=== PATIENT | female | born 1990 | race Caucasian/White ===

== ENCOUNTER 2018-05-31 20:08 | Inpatient (IN) | payer MEDICAID, SELFPAY ==
[~2018-05-31] VITALS: Ht 162.6 cm; Wt 82.2 kg
[2018-05-31 20:41] LABS: HEMATOCRIT 42.4 % (36.0-47.0); HEMOGLOBIN 14.5 g/dl (12.0-15.5); MEAN CORPUSCULAR HGB CONC 34.2 g/dl (32.0-36.5); MEAN CORPUSCULAR VOLUME 90.8 fl (80.0-96.0); PLATELET COUNT, AUTOMATED 252 10^3/uL (150-450); RED BLOOD COUNT 4.67 10^6/uL (4.00-5.40); WHITE BLOOD COUNT 8.4 10^3/uL (4.0-10.0)
[2018-05-31 21:11] LABS: ACETAMINOPHEN LEVEL < 2.0 UG/ML (10.0-30.0); ALBUMIN 3.9 GM/DL (3.2-5.2); ALT/SGPT 22 U/L (12-78); BILIRUBIN,DIRECT 0.2 MG/DL (0.0-0.2); BILIRUBIN,TOTAL 0.6 MG/DL (0.2-1.0); BLOOD UREA NITROGEN 16 MG/DL (7-18); CALCIUM LEVEL 8.8 MG/DL (8.5-10.1); CARBON DIOXIDE LEVEL 27 MEQ/L (21-32); CHLORIDE LEVEL 108 MEQ/L (98-107); CREATININE FOR GFR 1.04 MG/DL (0.55-1.30); ETHYL ALCOHOL (ETHANOL) < 0.003 % (0.000-0.010); GLOMERULAR FILTRATION RATE > 60.0 (>60); GLUCOSE, FASTING 82 MG/DL (70-100); SALICYLATE LEVEL 2.2 MG/DL (5.0-30.0); SODIUM LEVEL 141 MEQ/L (136-145); TOTAL PROTEIN 7.3 GM/DL (6.4-8.2)
[2018-05-31 21:17] LABS: AMPHETAMINES LEVEL URINE NEGATIVE (NEGATIVE); BARBITURATES URINE NEGATIVE (NEGATIVE); BENZODIAZEPINES URINE NEGATIVE (NEGATIVE); CANNABINOIDS URINE POSITIVE (NEGATIVE); COCAINE METABOLITE URINE NEGATIVE (NEGATIVE); METHADONE URINE NEGATIVE (NEGATIVE); OPIATES URINE NEGATIVE (NEGATIVE); PHENCYCLIDINE URINE NEGATIVE (NEGATIVE)
[2018-05-31] MEDS ORDERED: ACETAMINOPHEN TAB 650MG DOSE (2X325MG) PO PRN (21:45)
[2018-05-31] MEDS ORDERED: MOM 30ML SUSPENSION UDC PO PRN (21:45)
[2018-05-31] MEDS: traZODone 50 MG TAB PO PRN (23:34)
[2018-05-31 23:44] VITALS: BP 117/76
[2018-06-01 06:44] VITALS: BP 131/70
[2018-06-01] MEDS: NICOTINE 21MG/24HR 1 EA TRANSDERMAL TD SCH (10:01)
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
[2018-06-01 11:25] LABS: HCG, SERUM QUALITATIVE NEGATIVE (NEGATIVE)
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
[2018-06-01] MEDS ORDERED: FLUoxetine 10 MG CAP PO ONE (14:00)
[2018-06-01] MEDS ORDERED: PILL CRUSHER/CUTTER 1 EACH XX PRN (14:00)
[2018-06-01] MEDS: busPIRone 5 MG TAB PO SCH ×2 (15:06→20:22)
[2018-06-01 18:40] VITALS: BP 123/70
[2018-06-01] MEDS: hydrOXYzine 25 MG TAB PO PRN (20:21)
[2018-06-01] MEDS: IBUPROFEN 400 MG TAB PO PRN (20:21)
[2018-06-01] MEDS: traZODone 50 MG TAB PO PRN (20:22)
--- NOTE | 2018-06-01 22:07 | ECGEPIP ---
Stationary ECG Study [facility] Test Date: 2018-06-01 Pat Name: KAMALA FARIAS Department: Room: [place] [address] Gender: F Social Science Research Assistant: CARYN : 1990 Requested By: Joan Dixon Order Number: [id number] Reading MD: Fletcher Wyman Measurements Intervals [place] Rate: 78 P: 33 WI: 168 QRS: 68 QRSD: 85 T: 46 QT: 375 QTc: 427 Interpretive Statements SINUS RHYTHM Normal Electronically Signed On 06-01-2018 22:07:02 EST by Fletcher Wyman
[2018-06-02 06:23] VITALS: BP 144/76
[2018-06-02] MEDS: NICOTINE 21MG/24HR 1 EA TRANSDERMAL TD SCH (08:12)
[2018-06-02] MEDS: busPIRone 5 MG TAB PO SCH ×3 (08:12→20:42)
[2018-06-02] MEDS: FLUoxetine 10 MG CAP PO SCH (08:12)
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
[2018-06-02 18:00] VITALS: BP 128/82
[2018-06-02] MEDS: hydrOXYzine 25 MG TAB PO PRN (18:44)
[2018-06-02] MEDS: traZODone 50 MG TAB PO PRN (20:42)
[2018-06-02] MEDS: IBUPROFEN 400 MG TAB PO PRN (20:43)
[2018-06-03 06:05] VITALS: BP 118/81
[2018-06-03] MEDS: FLUoxetine 10 MG CAP PO SCH (08:48)
[2018-06-03] MEDS: hydrOXYzine 25 MG TAB PO PRN (08:48)
[2018-06-03] MEDS: busPIRone 5 MG TAB PO SCH (08:49)
[2018-06-03] MEDS: NICOTINE 21MG/24HR 1 EA TRANSDERMAL TD SCH (08:49)
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
[2018-06-03] MEDS ORDERED: BUSP5TA PO (09:28)
[2018-06-03] MEDS ORDERED: HYDR-3363 PO (09:28)
[2018-06-03] MEDS ORDERED: PROZ10CA7 PO (09:28)
[2018-06-03] MEDS ORDERED: TRAZO50TA PO (09:28)
[2018-06-03] MEDS ORDERED: ARIP5TA PO (09:28)
[2018-06-03] MEDS ORDERED: NICO21PAT TD (10:39)
== END 2018-06-03 11:06 | disposition home or self-care (01) | DRG 755 ==
LOC: M ED 20:08 → M ED INP 21:43 → M PSY 22:41
PROVIDERS: ADMIT Psychiatry & Neurology Psychiatry; ATTEND Psychiatry & Neurology Psychiatry
DX: F43.10 Post-traumatic stress disorder, unspecified (principal); F32.9 Major depressive disorder, single episode, unspecified; F12.10 Cannabis abuse, uncomplicated; F17.200 Nicotine dependence, unspecified, uncomplicated